=== PATIENT | male | born 1975 | race Hispanic/Latino ===

== ENCOUNTER → 2024-05-22 | Outpatient (CLI) | payer BC ==
--- NOTE | 2024-05-22 14:27 | HMCIMG ---
US SCROTUM & CONTENTS REASON: TESTICULAR PAIN COMPARISON: None TECHNIQUE: Routine scrotal sonogram was performed. Vascular Doppler evaluation was performed with spectral analysis and color flow imaging. FINDINGS: Right testicle is 3.5 x 3.0 x 4.5 cm, left is 4.2 x 2.4 x 3.8 cm. There is no evidence of focal mass lesion. There is normal and symmetric appearing blood flow. There is mild microlithiasis present in the each testicle. Right epididymis appears normal. Left epididymis is unremarkable. There is a small right hydrocele. IMPRESSION: 1. Mild bilateral testicular microlithiasis. 2. Small right hydrocele.
== END | disposition home or self-care (01) ==
LOC: RAH 13:03
PROVIDERS: ATTEND Nurse Practitioner Family
DX: N43.2 Other hydrocele (principal); N50.819 Testicular pain, unspecified
CPT/HCPCS: 76870